=== PATIENT | female | born 1940 | race Caucasian/White ===

== ENCOUNTER → 2016-10-05 | Outpatient (CLI) | payer OTHER ==
--- NOTE | 2016-10-05 11:16 | MA ---
Screening Digital Mammogram Clinical Indications: Routine screening. Personal history of non-Hodgkin's lymphoma. Technique: Standard cephalocaudal and mediolateral oblique projections are obtained. This examinati on is processed by the [employer] computer aided detection system. Comparison: August 2015, 2013, 2012 and 2011, and May 2007 Breast density: B; There are scattered fibroglandular densities. Findings: CAD was reviewed. No suspicious findings are identified. Impression: Negative mammogram. . BI-RADS 1. Recommendation: Routine screening is recommended in one year. [facility] will send a result letter to the patient. Negative mammography should not preclude additional workup of a clinically suspicious finding. The patient's information is entered into a reminder system with a target due date for her next mammo gram.
== END ==
LOC: BMCIMAGING 08:52
DX: Z12.31 Encounter for screening mammogram for malignant neoplasm of breast (principal); Z85.72 Personal history of non-Hodgkin lymphomas
CPT/HCPCS: G0202

== ENCOUNTER → 2017-02-21 | Outpatient (CLI) | payer OTHER | LOC: BMCIMAGING 10:30 | PROVIDERS: ATTEND Nurse Practitioner Adult Health | DX: R05 Cough (principal); M79.605 Pain in left leg; I80.02 Phlebitis and thrombophlebitis of superficial vessels of left lower extremity ==

== ENCOUNTER → 2017-08-08 | Outpatient (CLI) | payer OTHER ==
[~2017-08-08] MED LIST: ACETAMINOPHEN 325 MG TAB PO PRN; FLUMAZENIL 0.5 MG/5 ML MDV IVP ONE; FLUMAZENIL 0.5 MG/5 ML MDV IVP PRN; LIDOCAINE 1% 300 MG/30 ML SDV ONE; MIDAZOLAM 2 MG/2 ML VIAL IVP PRN; MIDAZOLAM 2 MG/2 ML VIAL ONE; NALOXONE HCL 0.4 MG/ML INJ IVP PRN; NALOXONE HCL 0.4 MG/ML INJ ONE; NS 1,000 ML IV SCH; ONDANSETRON 4 MG/2 ML VIAL IVP PRN; fentaNYL 100 MCG/2 ML INJ IVP PRN; fentaNYL 100 MCG/2 ML INJ ONE
--- NOTE | 2017-08-08 10:36 | PDGENHP ---
History & Physical Chief Complaint: PRIOR LYMPHOMA AND NEW ABD MASSES History of Present Illness: ABD MASS Pertinent Past, Social, Family History: LYMPHOMA Relevant Physical Exam: LYMPHOMA Cardiorespiratory Assessment: CLEAR BILATERALLY, NSR, SOFT ABDOMEN
--- NOTE | 2017-08-08 10:38 | PDPROPOC ---
Sedation Plan of Care Sedation Plan of Care: vital signs stable, mental status noted, patient educated of risks, benefits, alternatives, patient can tolerate sedation ASA Classification: ASA 1 Planned drugs: fentanyl, midazolam Mallampati Score: Class 2 Mallampati Reference Image: Patient passed 3-3-2 rule?: Yes
--- NOTE | 2017-08-08 11:18 | PDRADPN ---
Radiology Procedure Note Date of Procedure: 08/08/17 Radiologist: Guillaume Franks Anesthesia: IV Sedation (VERSED AND FENTANYL) Pre-op Diagnosis: ABD MASSES. LYMPHOMA Post-op Diagnosis: ABD MASSES. LYMPHOMA Indication: ABD MASSES Procedure: CT GUIDED RUQ PERITONEAL ABD MASS BX Finding(s): RUQ ABD MASSES Inf/Abcess present in the surg proc area at time of surgery?: No Depth: Organ Space (RUQ ABD ANTERIOR TO LIVER) EBL: Minimal (NO SIGNIFICANT) Total fluids administered: NONE Complications: NONE Specimen(s): 6 SPECIMENS INCLUDING HANKS SOLUTION AND FORMALDEHYDE.
[2017-08-08 11:38] VITALS: RESP 16
[2017-08-08 13:44] VITALS: BP 117/62; PULSE 76; TEMP 98.1; O2SAT 93
[2017-08-10 09:53] LABS: FINAL DIAGNOSIS See Comments; MICROSCOPIC DESCRIPTION See Comments
== END ==
LOC: FIMAGING 08:27
PROVIDERS: ATTEND Internal Medicine Hematology & Oncology
PROC: 0DBW3ZX Excision of Peritoneum, Percutaneous Approach, Diagnostic (ICD-10-PCS; principal; 2017-08-08 11:23)
DX: C83.13 Mantle cell lymphoma, intra-abdominal lymph nodes (principal)
CPT/HCPCS: 49180; 77012; 88184; 88185; 99152; 99153; J2250; J3010; J2310

== ENCOUNTER → 2017-10-08 | Outpatient (CLI) | payer OTHER | LOC: BMCIMAGING 12:40 | PROVIDERS: ATTEND Internal Medicine | DX: Z12.31 Encounter for screening mammogram for malignant neoplasm of breast (principal) ==

== ENCOUNTER 2018-06-09 10:17 | Observation (INO) | payer OTHER ==
--- NOTE | 2018-06-09 11:04 | EDPHY ---
H & P Time Seen by Provider: 06/09/18 11:03 HPI/ROS: Chief complaint. Syncope HPI. 78-year-old female here by EMS with syncopal episode. The patient has non -Hodgkin's lymphoma and takes medication calledCalquence as well as other medication. Normally she eats breakfast and then takes her medication. This morning she took her medication before eating. She had some abdominal cramping and felt hot. However she did not feel lightheaded. She went into the bedroom and heard her fall. She struck the left side of her face and left chest. She had a nose bleed and bit the inside of her left cheek. Complains of pain to her left ribs. Some tightness in her left hand but she feels that that is okay. She has had previous syncope several years ago. She had no chest discomfort prior. No shortness of breath. She has no abdominal pain. ROS 10 systems were reviewed and negative with the exception of the elements mentioned in the history of present illness Past Medical/Surgical History: Past medical history is significant dyslipidemia, non-Hodgkin's lymphoma with stem cell transplant, hypothyroid Social History: , nonsmoker, no alcohol Smoking Status: Never smoked Physical Exam: General Appearance: Alert pleasant well-developed female moderate distress vital signs are stable Eyes: Pupils equal and round no pallor or injection. ENT, left cheek with tongue bite to the mucosa. No dental trauma. Evidence of left nares epistaxis but no active bleeding. Abrasion and swelling to the left side of her face. Respiratory: There are no retractions, lungs are clear to auscultation. Cardiovascular: Regular rate and rhythm. Gastrointestinal: Abdomen is soft and nontender, no masses, bowel sounds normal. Neurological: Awake and alert, sensory and motor exams grossly normal. Skin: Warm and dry, no rashes. Musculoskeletal: Neck is supple nontender. No T, L, S spine pain. Pain to left chest wall mid axillary line about T7, T8. No surface trauma Extremities symmetrical, full range of motion. Psychiatric: Patient is oriented X 3, there is no agitation. Constitutional: Initial Vital Signs Temperature (C) 36.9 C 06/09/18 10:23 Heart Rate 95 06/09/18 10:23 Respiratory Rate 16 06/09/18 10:23 Blood Pressure 140/69 H 06/09/18 10:23 O2 Sat (%) 96 06/09/18 10:23 O2 Delivery Mode Room Air Allergies/Adverse Reactions: codeine [Codeine] Allergy (Verified 06/09/18 10:23) HYDROCODONE Allergy (Mild, Uncoded 10/27/10 15:57) TUSSIONEX WITH CODEINE Allergy (Mild, Uncoded 10/27/10 15:57) Rash Home Medications: Medication Instructions Recorded Levothyroxine Sodium [Synthroid] 0.88 mcg PO 09/25/11 Simvastatin 20 mg PO HS 09/25/11 Acyclovir 400 mg PO DAILY 08/03/17 Aspirin 81mg (*) 81 mg PO DAILY 08/03/17 Levothyroxine 0.75 mcg PO 08/03/17 Calquence 06/09/18 Medical Decision Making - Diagnostics EKG Interpretation: EKG interpreted by me shows normal sinus rhythm with normal interval. There is left axis deviation. Right bundle branch block and left anterior fascicular block. T-wave inversion in anterior leads. No other significant ST elevation or depression. No significant change from previous EKG. Imaging Results: Imaging Impressions Chest X-Ray 06/09/18 11:22 Impression: Stable negative chest. Head CT 06/09/18 11:22 Impression: Negative noncontrast CT of the brain. Nondisplaced fractures of the anterior and lateral anaya of the left maxillary sinus with hemorrhage within the sinus. Results called to Dr. Constantine Martinez at 11:50 AM at the time of the interpretation. Chest x-ray interpreted by me shows no evidence for fracture or pneumothorax Head CT reviewed by me and discussed with Radiology shows nondisplaced fractures of the anterior and lateral anaya of the left maxillary sinus with hemorrhage within the sinus. Procedures: IV normal saline, monitor ED Course/Re-evaluation: Re-evaluation at 12:30 p.m.. Patient is stable. She and I discussed imaging lab EKG results. We discussed treatment plan including recommendation for admission. She expresses understanding and agreement I consulted discussed case with hospitalist who agrees to the admission I consulted discussed case Dr. Valenzuela for ENT who will see the patient Differential Diagnosis: Syncope without prodrome. I considered a arrhythmia an acute coronary syndrome. She did strike her face and she has facial fractures. I also considered intracranial injury. She has pain in her left chest after she struck her chest but no evidence for rib fracture or pneumothorax per - Data Points Laboratory Results: Laboratory Results 06/09/18 11:24 06/09/18 11:24 06/09/18 06/09/18 06/09/18 11:24 11:24 11:24 WBC 3.81 10^3/uL 10^3/uL (3.80-9.50) RBC 4.20 10^6/uL 10^6/uL (4.18-5.33) Hgb 13.3 g/dL g/dL (12.6-16.3) Hct 40.5 % % (38.0-47.0) MCV 96.4 fL fL (81.5-99.8) MCH 31.7 pg pg (27.9-34.1) MCHC 32.8 g/dL g/dL (32.4-36.7) RDW 12.6 % % (11.5-15.2) Plt Count 85 10^3/uL L 10^3/uL (150-400) MPV 10.0 fL fL (8.7-11.7) Neut % (Auto) 65.9 % % (39.3-74.2) Lymph % (Auto) 23.9 % % (15.0-45.0) [place] % (Auto) 7.3 % % (4.5-13.0) Eos % (Auto) 1.0 % % (0.6-7.6) Baso % (Auto) 0.3 % % (0.3-1.7) Nucleat RBC Rel Count 0.0 % % (0.0-0.2) Absolute Neuts (auto) 2.51 10^3/uL 10^3/uL (1.70-6.50) Absolute Lymphs (auto) 0.91 10^3/uL L 10^3/uL (1.00-3.00) Absolute Monos (auto) 0.28 10^3/uL L 10^3/uL (0.30-0.80) Absolute Eos (auto) 0.04 10^3/uL 10^3/uL (0.03-0.40) Absolute Basos (auto) 0.01 10^3/uL L 10^3/uL (0.02-0.10) Absolute Nucleated RBC 0.00 10^3/uL 10^3/uL (0-0.01) Immature Gran % 1.6 % H % (0.0-1.1) Immature Gran # 0.06 10^3/uL 10^3/uL (0.00-0.10) PT 12.8 SEC SEC (12.0-15.0) INR 0.94 (0.83-1.16) APTT 22.9 SEC L SEC (23.0-38.0) Sodium 141 mEq/L mEq/L (135-145) Potassium 3.6 mEq/L mEq/L (3.3-5.0) Chloride 105 mEq/L mEq/L (97-110) Carbon Dioxide 26 mEq/l mEq/l (22-31) Anion Gap 10 mEq/L mEq/L (8-16) BUN 26 mg/dL H mg/dL (7-23) Creatinine 1.1 mg/dL H mg/dL (0.6-1.0) Estimated GFR 48 Glucose 177 mg/dL H mg/dL (70-100) Calcium 9.3 mg/dL mg/dL (8.5-10.4) POC Troponin I 06/09/18 10:34 WBC RBC Hgb Hct MCV MCH MCHC RDW Plt Count MPV Neut % (Auto) Lymph % (Auto) [place] % (Auto) Eos % (Auto) Baso % (Auto) Nucleat RBC Rel Count Absolute Neuts (auto) Absolute Lymphs (auto) Absolute Monos (auto) Absolute Eos (auto) Absolute Basos (auto) Absolute Nucleated RBC Immature Gran % Immature Gran # PT INR APTT Sodium Potassium Chloride Carbon Dioxide Anion Gap BUN Creatinine Estimated GFR Glucose Calcium POC Troponin I 0.00 ng/mL ng/mL (0.00-0.08) Point of Care Test Results: Chemistry 06/09/18 10:34 POC Troponin I 0.00 ng/mL ng/mL (0.00-0.08) Departure - Departure Disposition: [facility] Inpatient Acute Clinical Impression: Syncope Facial bones, closed fracture Qualifiers: Encounter type: initial encounter Facial bone/location: unspecified site of maxillary bone Laterality: left Qualified Code(s): S02.40DA - Maxillary fracture , left side, initial encounter for closed fracture Condition: Fair Referrals: NONE *PRIMARY CARE P,. [Primary Care Provider] - As per Instructions
--- NOTE | 2018-06-09 11:05 | CPEKG ---
Test Reason : OPEN Blood Pressure : / mmHG Vent. Rate : 097 BPM Atrial Rate : 096 BPM P-R Int : 197 ms QRS Dur : 160 ms QT Int : 406 ms P-R-T Axes : 073 -48 090 degrees QTc Int : 516 ms Sinus rhythm RBBB and LAFB Confirmed by Constantine Martinez ([id number]) on 06/09/2018 11:05:25 AM Referred By: Confirmed By:Constantine Martinez
[2018-06-09 11:31] LABS: PLATELET COUNT 85 10^3/uL (150-400)
[2018-06-09 11:39] LABS: INR 0.94 (0.83-1.16); PROTIME(PATIENT) 12.8 SEC (12.0-15.0)
[2018-06-09] MEDS ORDERED: ACETAMINOPHEN 325 MG TAB PO PRN (13:56)
[2018-06-09] MEDS ORDERED: ONDANSETRON 4 MG/2 ML VIAL IVP PRN (13:56)
[2018-06-09] MEDS ORDERED: ONDANSETRON DISINTEGRATING 4 MG TAB PO PRN (13:56)
[2018-06-09] MEDS ORDERED: IBUPROFEN 200 MG TAB PO PRN (15:18)
--- NOTE | 2018-06-09 15:59 | GHP ---
DATE OF ADMISSION: 06/09/2018 COMPLAINT: Syncope. HISTORY OF PRESENT ILLNESS: The patient is a very sweet 78-year-old with a history significant for n on-Hodgkin lymphoma. She had a recurrence in July of last year and is currently on monoclonal an tibody therapy with acalabrutinib. She said she got up as usual this morning and took her Synthroid and took her acalabrutinib. She ate a cracker and had a teaspoon of milk of magnesia. She started g etting some abdominal cramping and went to sit on the commode where she had a small amount of loose s tools. She started to get diaphoretic sitting on the commode and called for her while she wa s getting up to go back to bed. When she took a step or 2, she fell flat on her face and sustaining injury to the left side of her face. Her said she was out a couple minutes. He called 911. When she woke up, she was not disoriented, but complained of some pain on the left ribs and the left side of her face and was brought to the emergency department for further evaluation and treatment. She denies any palpitations, chest pain, shortness of breath prior to or after the event. All she re members is getting sweaty and diaphoretic prior to passing out. Of note, she had a similar event 6 y ears 6-1/2 years ago. At that time, she had a CT scan of her abdomen with IV contrast, went home, st arted getting some abdominal cramping, was on the commode, had some loose stools, and while getting u p to walk back to her bed, she again felt flushed, felt faint, and became unconscious for a few secon ds. She has also had remote episodes of syncope years ago that she recalls may have been related to another CAT scan, but she does not have the details. Currently, she complains of pain on the side of her face. No vision changes. She also bit the side of her mouth. She denies any chest pressure or shortness of breath. She does have some pain along t he left rib cage. No nausea or vomiting. No diarrhea. She is not dehydrated. She denies any lower extremity edema, numbness, tingling. REVIEW OF SYSTEMS: A comprehensive review of systems was done and is negative except as stated in th e HPI. PAST MEDICAL HISTORY: 1. Non-Hodgkin lymphoma diagnosed in 1998, history of stem cell transplant with recurrence in [facility] er of 2017. 2. Dyslipidemia. 3. Hypothyroidism, on replacement, with most recent TSH done a month ago within normal limits. 4. Osteoporosis, on Fosamax. 5. GE reflux disease. 6. History of ASD repair. 7. History of right bundle branch block. PAST SURGICAL HISTORY: Includes a partial colectomy, cholecystectomy, and AC repair. FAMILY HISTORY: Mother and father are . SOCIAL HISTORY: She and her have been for 53 years. 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 She has 1 son in the area. No grandchildren. She denies tobacco or alcohol use. Her and her are both completely independent and still drive. MEDICATIONS: Please see med reconciliation form. ALLERGIES: To codeine, hydrocodone, and Tussionex. PHYSICAL EXAMINATION: VITAL SIGNS: She is afebrile. Heart rate 81, blood pressure 124/69, respirat ions 22. She is 96% on room air. GENERAL: She is a very pleasant 78-year-old woman. She is in leah y mild distress. HEENT: Pupils are equal. Extraocular movements intact. She does have some swelli ng and ecchymosis on the left side of her cheek bone. Oropharynx: She has a slight abrasion on the inside of her mouth. NECK: Supple. No adenopathy. HEART: Regular rate and rhythm, without murmur , gallop, or rub. No carotid bruits. Peripheral pulses intact. LUNGS: Clear bilaterally, without wheeze, rhonchi, or rales. ABDOMEN: Soft, nontender, nondistended. EXTREMITIES: No clubbing, cyan osis, or edema. MUSCULOSKELETAL: No joint deformities or effusions. NEUROLOGIC: Her speech is flu ent. She is alert and oriented. She moves all 4 extremities. SKIN: Intact. She does have the ecc hymosis on the side of her face, as noted above. PSYCH: She has normal affect and mood. LABORATORY DATA: CBC is within normal limits except for mild thrombocytopenia with a platelet count of 85. This is stable for her. Chemistry: Electrolytes are normal. Creatinine is slightly elevate d at 1.1. Again, this is stable for her. IMAGING: Chest x-ray personally reviewed, interpreted shows nothing acute. EKG personally reviewed and interpreted, shows a right bundle branch block with a left anterior fascicular block. Head CT sh ows negative noncontrast CT of the brain. She has nondisplaced fractures of the anterior and lateral anaya of the left maxillary sinus with hemorrhage within the sinus. ASSESSMENT AND PLAN: 1. Syncope, unclear etiology, but does have a vasovagal feel to it. She also may have had some orth ostatic symptoms. They are similar to her previous syncopal episodes which have had no obvious etiol ogy. She is on a chemotherapeutic drug. I did review the side effects that do include bleeding, naldo sea, and potentially atrial fibrillation but no other orthostatic symptoms or syncope. We will monit or her on telemetry to rule out arrhythmias and check an echocardiogram. If everything is unremarkab le, would likely discharge tomorrow morning with followup with Cardiology to see if they would want t o do any more long-term monitoring giving the fact she has had multiple syncopal events, although sep arated by years. 2. Non-Hodgkin lymphoma, followed by Dr. Bravo. She has a followup appointment with him tomorrow. She may likely need to reschedule that. She will continue her chemotherapeutic drug while in the [facility]. 3. Dyslipidemia. 4. Hypothyroidism, with normal TSH. 5. History of osteoporosis. 6. History of atrial septal defect repair. 7. History of right bundle branch block. Again, continue monitoring and look for any moe or tachy arrhythmias. 8. Deep vein thrombosis prophylaxis. Patient is here under observation. If she stays an additional midnight stay, we will start her on prophylaxis. However, given the increased risk of bleeding with her chemotherapeutic drug, we will just encourage ambulation at this time. /[id number]/MODL
--- NOTE | 2018-06-09 16:13 | ASMTCMCOM ---
CM Note CM Note Notes: Pt admitted to the hospital after passing out, pt was using the commode at the time. She lives at home w/her and both are independent and drive. Anticipate pt will dc home w/support of when medically stable, no therapies have been ordered. CM available for any changes. DC Plan: Independent Date Signed: 06/09/2018 04:13 PM Electronically Signed By:Erin Farmer RN
[2018-06-09] MEDS: [UNRECOGNIZED DRUG - OTHER] PO SCH (20:30)
[2018-06-09] MEDS ORDERED: ATORVASTATIN CALCIUM 10 MG TAB PO SCH (21:00)
[2018-06-09] MEDS ORDERED: diphenhydrAMINE 25 MG CAP PO PRN (23:10)
[2018-06-10] MEDS ORDERED: LEVOTHYROXINE 75 MCG TAB PO SCH (06:00)
[2018-06-10] MEDS: [UNRECOGNIZED DRUG - OTHER] PO SCH (08:58)
[2018-06-10] MEDS ORDERED: MULTIVITAMINS 1 EACH TAB PO SCH (09:00)
[2018-06-10] MEDS ORDERED: ACYCLOVIR 400 MG TAB PO SCH (09:00)
[2018-06-10] MEDS ORDERED: CHOLECALCIFEROL VIT D3 2,000 UNITS TAB/CAP PO SCH (09:00)
--- NOTE | 2018-06-10 09:27 | GCON ---
DATE OF CONSULTATION: 06/10/2018 CHIEF COMPLAINT: Left facial injury. HISTORY OF PRESENT ILLNESS: This 78-year-old female fell yesterday during a syncopal episode, striki ng her left face. The patient briefly lost consciousness. [facility] of the head was performed. This revealed a nondisplaced fracture of the le ft maxilla. A nondisplaced fracture of her anterior wall as well as the lateral wall was noted to be present. The patient has noted egress of bloody drainage from the left side of the nose. She denie s facial hypesthesia or malocclusion. EXAMINATION: GENERAL: The patient is an alert, cooperative, female in no apparent distress. She ap pears to be alert and oriented. VITAL SIGNS: Temperature is 36.9, blood pressure 101/52, pulse of 6 8, respirations were 16. On examination, moderate left facial ecchymosis was present. The head was normocephalic. Tympanic membranes were clear bilaterally. Nasal exam was unremarkable except for th e presence of dry blood in the left nasal airway. Oral cavity and oropharynx exam revealed a left bu ccal mucosal abrasion as well as palatal petechiae. A small amount of fresh blood was passed in the posterior pharyngeal wall. The neck was without mass or adenopathy. No bony facial step-off was not ed on facial palpation. IMPRESSION: It is my impression that the patient sustained a left facial injury including a nondispl aced left maxillary fracture when she fell yesterday. At this point, I see no worrisome pathology no r do I see evidence of facial fractures which will require surgical repair. The patient was informed of this. I have asked that she follow up with me on an as-needed basis. /[id number]/MODL
[2018-06-10 10:47] VITALS: BP 117/62
--- NOTE | 2018-06-10 11:53 | ECHO ---
[email or web address] [address] [address] Main: [phone] Fax: [email or web address] Echocardiogram Name: RC TAN MR#: [id number] Study Date: 06/10/2018 Study Time: 08:33 AM Date of : 1940 Age: 78 year(s) Height: 165.1 cm (65 in.) Weight: 57.61 kg (127 lb.) BSA: 1.63 m2 Gender: Female Examination: Echo Indication: Syncope/hx of ASD Image Quality: Technically Difficult Contrast: Requested by: Fouzia Stevenson BP: 111 mmHg/60 mmHg Heart Rate: Rhythm: Indication: Syncope/hx of ASD Procedure Staff Ruffling Machine Operator: Norma Reed RDCS Reading Physician: Kvng Damian MD Requesting Provider: Conclusions: Normal size left ventricle. Normal global systolic LV function. The ejection fraction is estimated to be 60-65 %. LV septal motion consistent with conduction abnormality. E/a wave reversal.. Trivial mitral valve regurgitation. Minimal aortic cusp calcification is noted. Mild tricuspid regurgitation is present. The pulmonary artery pressure is normal. Measurements: Chambers Valvular Assessment AV/MV Valvular Assessment TV/PV Normal Normal Normal Name Value Range Name Value Range Name Value Range Ao Rosie (MM): 2.7 cm (2.2 cm-3.7 AV Vmax: 1.42 m/s (1 m/s-1.7 TR Vmax: 2.24 mm/s ( - ) cm) m/s) TR PGmax: 20 mmHg ( - ) IVSd (2D): 0.8 cm (0.6 cm-1.1 AV maxP mmHg ( - ) syst. PAP: 25 mmHg ( - ) cm) AV meanP mmHg ( - ) LVDd (2D): 5.1 cm (3.9 cm-5.3 MV E Vmax: 0.54 m/s ( - ) cm) MV A Vmax: 0.83 m/s ( - ) LVDs (2D): 3.1 cm (2.1 cm-4 MV E/A: 0.65 ( - ) cm) LVPWd (2D): 0.6 cm ( - ) LVEF (BP): 70 % (>=55 %) EF Range: 60-65 % Continued Measurements: Chambers Valvular Assessment AV/MV Valvular Assessment TV/PV Name Value Name Value Name Value Patient: RC TAN Study Date: 06/10/2018 Page 1 of 2 08:33 AM LADs: 3.9 cm MV E/E' Septal: 7.10 CVP (est.): 5 mmHg LADs Lon.0 cm MV E/E' Lateral: 4.70 LA Area: 18.9 cm2 Additional Vessels Name Value Ao Ascendin.8 cm Findings: Left Ventricle: Normal size left ventricle. No LV hypertrophy. Normal global systolic LV function. The ejection fraction is estimated to be 60-65 %. LV septal motion consistent with conduction abnormality. E/a wave reversal.. Right Ventricle: Normal size right ventricle. There is a moderator band noted in the right ventricle. Left Atrium: The left atrium is normal in size. Right Atrium: The right atrium is normal in size. Mitral Valve: The mitral valve is normal in appearance and function. Trivial mitral valve regurgitation. Aortic Valve: The aortic valve is normal in appearance and function. The aortic valve is tri-leaflet. Minimal aortic cusp calcification is noted. Tricuspid Valve: The tricuspid valve is normal in appearance and function. Mild tricuspid regurgitation is present. The pulmonary artery pressure is normal. Pulmonic Valve: The pulmonic valve is normal in appearance and function. Aorta: The aorta is normal. Pericardium: No pericardial effusion. There is pericardial fat. (No Signature Object) Patient: RC TAN Study Date: 06/10/2018 Page 2 of 2 08:33 AM [id number]
--- NOTE | 2018-06-10 12:59 | PDPROPOC ---
Sedation Plan of Care Sedation Plan of Care: vital signs stable, mental status noted, patient educated of risks, benefits, alternatives, patient can tolerate sedation ASA Classification: ASA 1 Planned drugs: fentanyl, midazolam Mallampati Score: Class 1 Mallampati Reference Image: Patient passed 3-3-2 rule?: Yes
--- NOTE | 2018-06-10 13:00 | PDHPUP ---
History & Physical Update H&P update statement: This history and physical update is based on an assessment of the patient which was completed after admission or registration (within 24 hours), but prior to the surgery/procedure. H&P update: H&P reviewed & patient examined, no change in patient's condition since H&P completed
--- NOTE | 2018-06-10 13:27 | PDCARCONS ---
Cardiology Consult Reason for Consult: Syncope, abnormal ECG. Chief Complaint: Syncope. Requesting Physician: Dr. Fouzia Stevenson. History of Present Illness: This is a 78-year-old female currently seen in consultation on the progressive care unit. Her cardiovascular history is significant for an atrial septal defect which was closed surgically back in 1977. Additionally, she has an abnormal ECG indicating a right bundle branch block. She has had previous episodes of syncope. She thinks that she may have had 1 or 2 episodes many years ago. She experienced an episode in 2011 where she was having a bowel movement, got up from the stool and suddenly lost consciousness. Yesterday, she awoke feeling relatively well. In the morning, she took her chemotherapy medication with some crackers. Apparently, she normally takes this with food. About 15 min after taking this medication she developed nausea associated with abdominal cramping. She went to the bathroom and had a small loose stool. While she was having a bowel movement she developed diaphoresis. She got up to go into the bedroom and laid down and suddenly lost consciousness. Her was there and witnessed the event. He states that she went limp and fell to the floor. She struck her left face sustaining facial contusions. She did not require any surgical treatment further the facial trauma. She states that this event is similar to her previous event. She has no history of palpitations. She has no history of unprovoked episodes of syncope without prodrome. She notes no chest pain or pressure. She has not been started on any new medications. Overnight she has been monitored on telemetry without arrhythmia. She had an echocardiogram done earlier today which was essentially unremarkable. History Information - Allergies/Home Medication List Allergies/Adverse Reactions: codeine [Codeine] Allergy (Verified 06/09/18 10:23) HYDROCODONE Allergy (Mild, Uncoded 10/27/10 15:57) TUSSIONEX WITH CODEINE Allergy (Mild, Uncoded 10/27/10 15:57) Rash Home Medications: Acalabrutinib [Calquence] 100 mg PO BID 06/09/18 [Last Taken 06/09/18 08:00] Acyclovir 400 mg PO DAILY 06/09/18 [Last Taken 06/08/18] Cholecalciferol Vit D3 [Vitamin D3 2000 units tab (OTC)] 2,000 units PO DAILY [Last Taken Unknown] Herbals/Supplements -Info Only 1 ea PO DAILY 06/09/18 [Last Taken Unknown] Levothyroxine Sodium 75 mcg PO SUMOWEFRSA@59906/09/18 [Last Taken 06/09/18] Levothyroxine Sodium 88 mcg PO TUTH@0600 06/09/18 [Last Taken 06/06/18] Multivitamins [Multivitamin (*)] 1 each PO DAILY 06/09/18 [Last Taken 06/08/18] Simvastatin 20 mg PO HS 06/09/18 [Last Taken 06/08/18] I have personally reviewed and updated: family history, medical history, social history, surgical history Past Medical History: Non-Hodgkin's lymphoma diagnosed in 1998 status post stem cell transplant. Apparently she has had recurrence and now is on suppressive chemotherapy. Hyperlipidemia. Hypothyroidism. Osteoporosis. GERD. History of abnormal ECG in the form of right bundle branch block. History of ASD repair. - Surgical History Additional surgical history: ASD repair, cholecystectomy, partial colectomy, previous port placement. - Family History Positive for: non-pertinent - Social History Smoking Status: Never smoked Tobacco Use: Secondhand Alcohol Use: None Drug Use: None Additional social history: She is and accompanied by her . She is originally from [facility]. Physical Exam Physical Exam: Temp Pulse Resp BP Pulse Ox 36.7 C 84 14 117/62 94 06/10/18 07:15 06/10/18 10:42 06/10/18 07:15 06/10/18 10:42 06/10/18 07:15 Constitutional: no apparent distress, appears nourished, not in pain Eyes: PERRL, anicteric sclera, EOMI Ears, Nose, Mouth, Throat: moist mucous membranes, hearing normal, ears appear normal, no oral mucosal ulcers Cardiovascular: regular rate and rhythym, no murmur, rub, or gallop, other ( Midline sternotomy incision well healed.), No edema Respiratory: no respiratory distress, no rales or rhonchi, clear to auscultation Gastrointestinal: normoactive bowel sounds, soft, non-tender abdomen, no palpable masses Genitourinary: no bladder fullness, no bladder tenderness Skin: warm, normal color, no rashes or abrasions, no fluctuance, no induration, No mottled Musculoskeletal: full muscle strength, no muscle tenderness, normal joint ROM, no joint effusions Psychiatric: interacting appropriately, not anxious, not encephalopathic, thought process linear Lymph, Heme, Immunologic: no cervical LAD, no supraclavicular LAD Lab and Imaging 06/09/18 11:24 06/10/18 03:30 WBC 3.81 10^3/uL (3.80-9.50) 06/09/18 11:24 RBC 4.20 10^6/uL (4.18-5.33) 06/09/18 11:24 Hgb 13.3 g/dL (12.6-16.3) 06/09/18 11:24 Hct 40.5 % (38.0-47.0) 06/09/18 11:24 MCV 96.4 fL (81.5-99.8) 06/09/18 11:24 MCH 31.7 pg (27.9-34.1) 06/09/18 11:24 MCHC 32.8 g/dL (32.4-36.7) 06/09/18 11:24 RDW 12.6 % (11.5-15.2) 06/09/18 11:24 Plt Count 85 10^3/uL (150-400) L 06/09/18 11:24 MPV 10.0 fL (8.7-11.7) 06/09/18 11:24 Neut % (Auto) 65.9 % (39.3-74.2) 06/09/18 11:24 Lymph % (Auto) 23.9 % (15.0-45.0) 06/09/18 11:24 Creek % (Auto) 7.3 % (4.5-13.0) 06/09/18 11:24 Eos % (Auto) 1.0 % (0.6-7.6) 06/09/18 11:24 Baso % (Auto) 0.3 % (0.3-1.7) 06/09/18 11:24 Nucleat RBC Rel Count 0.0 % (0.0-0.2) 06/09/18 11:24 Absolute Neuts (auto) 2.51 10^3/uL (1.70-6.50) 06/09/18 11:24 Absolute Lymphs (auto) 0.91 10^3/uL (1.00-3.00) L 06/09/18 11:24 Absolute Monos (auto) 0.28 10^3/uL (0.30-0.80) L 06/09/18 11:24 Absolute Eos (auto) 0.04 10^3/uL (0.03-0.40) 06/09/18 11:24 Absolute Basos (auto) 0.01 10^3/uL (0.02-0.10) L 06/09/18 11:24 Absolute Nucleated RBC 0.00 10^3/uL (0-0.01) 06/09/18 11:24 Immature Gran % 1.6 % (0.0-1.1) H 06/09/18 11:24 Immature Gran # 0.06 10^3/uL (0.00-0.10) 06/09/18 11:24 PT 12.8 SEC (12.0-15.0) 06/09/18 11:24 INR 0.94 (0.83-1.16) 06/09/18 11:24 APTT 22.9 SEC (23.0-38.0) L 06/09/18 11:24 Sodium 140 mEq/L (135-145) 06/10/18 03:30 Potassium 4.4 mEq/L (3.3-5.0) 06/10/18 03:30 Chloride 110 mEq/L (97-110) 06/10/18 03:30 Carbon Dioxide 25 mEq/l (22-31) 06/10/18 03:30 Anion Gap 5 mEq/L (8-16) L 06/10/18 03:30 BUN 23 mg/dL (7-23) 06/10/18 03:30 Creatinine 1.1 mg/dL (0.6-1.0) H 06/10/18 03:30 Estimated GFR 48 06/10/18 03:30 Glucose 82 mg/dL (70-100) 06/10/18 03:30 Calcium 8.9 mg/dL (8.5-10.4) 06/10/18 03:30 POC Troponin I 0.00 ng/mL (0.00-0.08) 06/09/18 10:34 Troponin I < 0.012 ng/mL (0.000-0.034) 06/10/18 03:30 EKG additional interpertation: Normal sinus rhythm with borderline first-degree AV block. Right bundle branch block with left anterior fascicular block. Telemetry: Normal sinus rhythm. Echocardiogram: There is a separately detailed report on the chart. A/P Assessment: This is a 78-year-old female who has a history of an atrial septal defect which was repaired surgically back in the 70s. She has an ECG indicating a right bundle branch block with a left anterior fascicular block and a borderline first -degree AV block. She is currently admitted following an episode of syncope which, based on her description, appears to be most consistent with a vasovagal event. Specifically, she had prodrome will symptoms of abdominal cramping, diarrhea and significant diaphoresis. Because of her abnormal ECG at high index of suspicion needs to be maintained for the possibility of high-grade AV block. She has not manifested any arrhythmia since her hospitalization here. There is no indication that this is an ischemic syndrome or consequences of pulmonary embolism. Orthostatics were negative. Plan: 1. At this point I think she can be discharged home. 2. As an outpatient I would like her to have a 1 month [employer] monitor. 3. She was advised not to drive pending the results of the above monitor and a three-month period of observation. 4. I do not think she requires any additional inpatient cardiovascular testing or therapies. 5. She will follow up with me in the outpatient setting. Review of Systems Review of Systems: - Review of Systems Constitutional: no symptoms reported EENTM: no symptoms reported Respiratory: no symptoms reported Cardiac: see HPI Gastrointestinal/Abdominal: no symptoms reported Genitourinary: no symptoms Musculoskelatal: no symptoms Skin: no symptoms Neurological: no symptoms Hematologic/Lymphatic: no symptoms reported Immunologic/allergic: no symptoms reported All Other Systems: Reviewed and Negative
--- NOTE | 2018-06-10 13:30 | ASDISCHSUM ---
Discharge Information Plan Status:Home with No Needs Medically Cleared to Leave:06/10/2018 Discharge Date:06/10/2018 CM D/C Disposition:Home, Routine, Self-Care ADT D/C Disposition:Home, Routine, Self-Care Projected Discharge Date:06/10/2018 Transportation at D/C: Discharge Delay Reason: Follow-Up Date:06/10/2018 Discharge Slot: Final Diagnosis: Placement Information Patient Contact Information Contact Name:CHRISTOPHER Relationship:Irene Address:[address]:[place] Alternate Phone: [facility]/Zip Code:[place] [address] Email: Financial Information Financial Class:Medicare Primary Plan Desc:MEDICARE OUTPATIENT Primary Plan Number:[id number] Secondary [facility] Secondary Plan Number:[id number] Assessment Information LACE LACE Length of stay for Answers: Less than 1 day current admission Acuity / Level of Answers: No Care: Did the patient have an inpatient admission? Comorbidities - select Answers: Other Notes: Non Hodgkins all that apply Lymphoma, Hypothyroid # of Emergency department Answers: 1-2 visits in the last 6 months Score: 2 Date Signed: 06/10/2018 01:28 PM Electronically Signed By:Tana Roche RN [facility] CM Progress Note CM Note CM Note Notes: Pt admitted to the hospital after passing out, pt was using the commode at the time. She lives at home w/her and both are independent and drive. Anticipate pt will dc home w/support of when medically stable, no therapies have been ordered. CM available for any changes. DC Plan: Independent Date Signed: 06/09/2018 04:13 PM Electronically Signed By:Erin Farmer RN Case Management Discharge Plan Note Case Management Discharge Discharge Order Complete? Answers: Yes Patient to Obtain Answers: Independently Medications Transportation Arranged Answers: Family/Friends Discharge Comments Notes: pt to discharge home independent with follow up as directed. Pt [facility] [phone] to transport home. Date Signed: 06/10/2018 01:29 PM Electronically Signed By:Tana Roche RN Intervention Information Intervention Type:*VINI-Signed Date of Service:06/10/2018 10:03 AM Patient Type:Observation Staff Member:Yeni Chavez Hours: Discipline: Severity: Comment:
--- NOTE | 2018-06-10 13:30 | ASMTDCNOTE ---
Case Management Discharge Discharge Order Complete? Answers: Yes Patient to Obtain Answers: Independently Medications Transportation Arranged Answers: Family/Friends Discharge Comments Notes: pt to discharge home independent with follow up as directed. Pt [facility] [phone] to transport home. Date Signed: 06/10/2018 01:29 PM Electronically Signed By:Tana Roche RN
--- NOTE | 2018-06-10 13:33 | GDS ---
DIAGNOSES: 1. Syncope. 2. Sinus fracture secondary to syncope, evaluated by Dr. Valenzuela from ENT, who felt that no further e valuation needed or treatment. 3. Abnormal EKG with right bundle branch block and left anterior fascicular block. The patient at isk for complete heart block. 4. Hypothyroidism. 5. Non-Hodgkin's lymphoma, followed by Dr. Bravo. 6. Osteoporosis. 7. Gastroesophageal reflux disease. CONSULTATIONS: Dr. Valenzuela from ENT; Dr. Vasquez Damian from cardiology. PROCEDURES DONE: 1. Head CT without contrast. Negative CT of the brain with nondisplaced fractures of the anterior a nd lateral anaya of the left maxillary sinus with hemorrhage into the sinus. 2. Echocardiogram, essentially normal ejection fraction. HOSPITAL COURSE: The patient is delightful 78-year-old woman who came in with a syncopal event, sust aining the above sinus fractures. Evaluation included the above procedure. She was also monitored o n telemetry throughout her stay, which was unremarkable. It was felt that her symptoms were consiste nt with a vasovagal response. However, she has had multiple episodes in the remote past, and since s he has an abnormal EKG, I did consult Cardiology to see if she needed any further evaluation in the o utpatient setting. Given her EKG, it was felt that she may be at risk for heart block, so they recom mend a 30-day event monitor with Cardiology followup. They will set that up prior to discharge home. Other than that, there was no obvious etiology found for the cause of her syncope and it certainly may just be from vasovagal syncope. However, she does seem to injure herself with her syncope. CONDITION ON DISCHARGE: Good. Her vital signs have been stable. She was not orthostatic here in [facility]. Medications were unchanged. DISCHARGE MEDICATIONS: Please see discharge medication form. FOLLOWUP: She will follow up with Dr. Mraj Hernandez. I did establish follow up with Dr. Damian, who henry l set up an event monitor and will follow up with her rhythm. Other than that, no obvious cause was found for her syncope. She will also re-set up a followup appointment with . She did miss her appointment as she was in the hospital at the time. Total time spent with the patient on the day of discharge and coordination of care was 35 minutes. /[id number]/MODL
[2018-06-11] MEDS ORDERED: LEVOTHYROXINE 88 MCG TAB PO SCH (06:00)
== END 2018-06-10 14:51 | disposition home or self-care (01) ==
LOC: EDUNIT# → INTOOBSV 12:45 → F2W 14:04
PROVIDERS: ADMIT Internal Medicine; ATTEND Internal Medicine
DX: R55 Syncope and collapse (principal); S02.401A Maxillary fracture, unspecified side, initial encounter for closed fracture; W18.39XA Other fall on same level, initial encounter; Y92.012 Bathroom of single-family (private) house as the place of occurrence of the external cause; Y99.8 Other external cause status; C85.90 Non-Hodgkin lymphoma, unspecified, unspecified site; Z94.84 Stem cells transplant status; I45.19 Other right bundle-branch block; I44.4 Left anterior fascicular block; E03.9 Hypothyroidism, unspecified; M81.0 Age-related osteoporosis without current pathological fracture; K21.9 Gastro-esophageal reflux disease without esophagitis
CPT/HCPCS: 70450; 71045; 92523; 93005; 93306; 97161; 99285; G0378; G8978; G8979; G8980; G9165; G9166; G9167; 84484-PO

== ENCOUNTER 2018-06-24 17:02 | Emergency (ER) | payer OTHER ==
--- NOTE | 2018-06-24 18:27 | EDPHY ---
H & P Stated Complaint: Poss infected L arm @IV site 06/08;started antibx last ; sent for eval Time Seen by Provider: 06/24/18 17:09 HPI/ROS: CHIEF COMPLAINT: left upper extremity infection HISTORY OF PRESENT ILLNESS: 78-year-old female with lymphoma presents with a possible left upper extremity infection. She had an IV placed on 06/08/18. After IV placement, she developed redness and tenderness over the IV site. The redness and tenderness are mild/moderate and persistent, though not expanding in size. No change in discomfort with elbow/wrist ROM. Taking Diclox without relief. Low grade fever x 5 days. REVIEW OF SYSTEMS: complete 10 point ROS reviewed and is negative except for the noted elements in the HPI - Personal History Current Tetanus Diphtheria and Acellular Pertussis (TDAP): Yes Tetanus Vaccine Date: 2010 - Medical/Surgical History Hx Asthma: No Hx Chronic Respiratory Disease: No Hx Diabetes: No Hx Cardiac Disease: No Hx Renal Disease: No Hx Cirrhosis: No Hx Alcoholism: No Hx HIV/AIDS: No Hx Splenectomy or Spleen Trauma: No Other PMH: NHL, OHS, STEM CELL TRANSPLANT 2001, HYPOTHYROID, dislipidemia, ASD repair, metal shrapnel to R flank/lateral back - Social History Smoking Status: Never smoked Additional Social History: - Physical Exam Exam: General Appearance: Alert, pleasant Eyes: Pupils equal and round, no conjunctival pallor or injection ENT, Mouth: Mucous membranes moist Neck: Normal inspection Respiratory: Lungs are clear to auscultation Cardiovascular: Regular rate and rhythm Gastrointestinal: Abdomen is soft and nontender Back: Right paraspinous area of skin breakdown approx 3cm in diameter and ruptured top of blister in place, no infection Neurological: A&O, nonfocal, normal gait Skin: Warm and dry Extremities: Left upper extremity-linear area of firm swelling and erythema over the course of a superficial vein on the radial aspect of the forearm; proximally (just distal to the antcubital fossa) there is a 4 cm round area of erythema, without fluctuance Psychiatric: Mood and affect normal Constitutional: Initial Vital Signs Temperature (C) 36.7 C 06/24/18 17:04 Heart Rate 100 06/24/18 17:04 Respiratory Rate 18 06/24/18 17:04 Blood Pressure 121/69 H 06/24/18 17:04 O2 Sat (%) 94 06/24/18 17:04 O2 Delivery Mode Room Air Allergies/Adverse Reactions: codeine [Codeine] Allergy (Verified 06/24/18 17:03) HYDROCODONE Allergy (Mild, Uncoded 10/27/10 15:57) TUSSIONEX WITH CODEINE Allergy (Mild, Uncoded 10/27/10 15:57) Rash Home Medications: Medication Instructions Recorded Acalabrutinib [Calquence] 100 mg PO BID 06/09/18 Acyclovir 400 mg PO DAILY 06/09/18 Cholecalciferol Vit D3 [Vitamin D3 2,000 units PO DAILY 06/09/18 2000 units tab (OTC)] Herbals/Supplements -Info Only 1 ea PO DAILY 06/09/18 Levothyroxine Sodium 75 mcg PO SUMOWEFRSA@59906/09/18 Levothyroxine Sodium 88 mcg PO TUTH@59906/09/18 Multivitamins [Multivitamin (*)] 1 each PO DAILY 06/09/18 Simvastatin 20 mg PO HS 06/09/18 Ibuprofen [Motrin (*)] 400 mg PO Q6HRS PRN tab 06/10/18 Cephalexin [Keflex (*)] 500 mg PO TID #30 cap 06/24/18 Dicloxacillin Sodium [Dynapen 500 500 mg PO 06/24/18 MG (*)] Sulfamethox/Tmp 800/160 mg 1 tab PO BID #20 tab 06/24/18 [Bactrim Ds] Medical Decision Making - Diagnostics Imaging Results: Extremity Venous Study 06/24/18 18:04 Impression: Occlusion of multiple veins as detailed above at the level of the antecubital fossa. Results called and discussed with KENZIE CRANE M.D. on 06/24/2018 at 19:13. Imaging: Discussed imaging studies w/ call center nurse Radiologist ED Course/Re-evaluation: This patient presents with superficial thrombophlebitis with likely overlying infection. Ultrasound reveals superficial thrombophlebitis, without abscess or DVT. I considered anticoagulation, not indicated in this pt. Will start ibuprofen tid and apply warm compresses. Does not meet SIRS criteria; VS normal , afebrile and white blood cell count is normal. Discussed with patient and her family admission versus discharge home. The patient has decided to go home on oral antibiotics. I will switch her antibiotic to Keflex and Bactrim. She will follow up with Dr. Bravo in the office in 2 days for recheck. Warning signs discussed. She will return to the emergency department for worsening symptoms, any concerns. Differential Diagnosis: Differential diagnosis includes though it is not limited to abscess, DVT, osteomyelitis, necrotizing fasciitis, neutropenia. - Data Points Laboratory Results: Laboratory Results 06/24/18 19:13 06/24/18 19:13 Medications Given: Discontinued Medications Cephalexin HCl (Keflex) 500 mg PO EDNOW ONE PRN Reason: Protocol Stop: 06/24/18 20:21 Last Admin: 06/24/18 20:25 Dose: 500 mg Trimethoprim/Sulfamethoxazole (Bactrim Ds) 1 ea PO EDNOW ONE PRN Reason: Protocol Stop: 06/24/18 20:21 Last Admin: 06/24/18 20:25 Dose: 1 ea Departure - Departure Disposition: Home, Routine, Self-Care Clinical Impression: Superficial thrombophlebitis of left upper extremity Condition: Good Instructions: Superficial Thrombophlebitis (ED) Additional Instructions: Ibuprofen 600 mg 3 times daily while the pain persists. Apply a warm compress 4-5 times daily. Take antibiotics as prescribed. Referrals: Marj Hernandez MD [Primary Care Provider] - As per Instructions Prescriptions: Cephalexin [Keflex (*)] 500 mg PO TID #30 cap Sulfamethox/Tmp 800/160 mg [Bactrim Ds] 1 tab PO BID #20 tab
[2018-06-24 19:22] LABS: PLATELET COUNT 114 10^3/uL (150-400)
[2018-06-24] MEDS ORDERED: CEPHALEXIN 500 MG CAP PO ONE (20:20)
[2018-06-24] MEDS ORDERED: SULFAMETHOX/TMP 800/160 MG 1 TAB PO ONE (20:20)
[2018-06-24 20:32] VITALS: BP 128/68
== END 2018-06-24 20:32 | disposition home or self-care (01) ==
DX: I80.8 Phlebitis and thrombophlebitis of other sites (principal); C85.90 Non-Hodgkin lymphoma, unspecified, unspecified site; E03.9 Hypothyroidism, unspecified; Z94.84 Stem cells transplant status

== ENCOUNTER → 2018-10-14 | Outpatient (CLI) | payer OTHER | LOC: BMCIMAGING 12:51 | PROVIDERS: ATTEND Internal Medicine | DX: Z12.31 Encounter for screening mammogram for malignant neoplasm of breast (principal) ==

== ENCOUNTER → 2019-02-13 | Outpatient (CLI) | payer OTHER | LOC: FIMAGING 09:15 ==